=== PATIENT | female | born 1955 | race Asian ===

== ENCOUNTER 2018-10-01 07:38 | Day surgery (SDC) | payer OTHER ==
[~2018-10-01] VITALS: Ht 160 cm; Wt 59.0 kg
[2018-10-01 07:55] VITALS: BP 146/80
[2018-10-01 15:05] VITALS: BP 143/73
== END 2018-10-01 12:15 | disposition home or self-care (01) ==
LOC: GI 07:38 → OR 11:30 → GI 11:30
PROVIDERS: Internal Medicine
PROC: 0DB68ZX Excision of Stomach, Via Natural or Artificial Opening Endoscopic, Diagnostic (ICD-10-PCS; 2018-10-01)
PROC: 0DB38ZX Excision of Lower Esophagus, Via Natural or Artificial Opening Endoscopic, Diagnostic (ICD-10-PCS; 2018-10-01)
PROC: 0DB48ZX Excision of Esophagogastric Junction, Via Natural or Artificial Opening Endoscopic, Diagnostic (ICD-10-PCS; 2018-10-01)
PROC: 0DB98ZX Excision of Duodenum, Via Natural or Artificial Opening Endoscopic, Diagnostic (ICD-10-PCS; principal; 2018-10-01 11:30)
DX: K21.9 Gastro-esophageal reflux disease without esophagitis (principal); K20.9 Esophagitis, unspecified; K22.70 Barrett's esophagus without dysplasia; K30 Functional dyspepsia; R13.10 Dysphagia, unspecified; K29.40 Chronic atrophic gastritis without bleeding; K59.00 Constipation, unspecified; I10 Essential (primary) hypertension; Z68.23 Body mass index [BMI] 23.0-23.9, adult
CPT/HCPCS: 43235; J1200; J1610; J2250; J2310; J3010; J3490